=== PATIENT | male | born 1945 | race Caucasian/White ===

== ENCOUNTER → 2017-11-21 | Day surgery (SDC) | payer OTHER, MEDICARE ==
[~2017-11-21] MED LIST: ACETAMINOPHEN 325 MG TAB PO ONE; DEXAMETHASONE 4 MG/ML VIAL IVP ONE; FAMOTIDINE 20 MG TAB PO ONE; LIDOCAINE 1% 2 ML INJ ID PRN; LR 1,000 ML IV ONE; ROPIVACAINE 0.2% 80 MG, EPINEPHrine 0.2 MG, KETOROLAC TROMETHAMINE 30 MG in SYRINGE 0 ML IU ONE; TRANEXAMIC ACID 3,000 MG in NS (SYRINGE) 50 ML IRR ONE; TRANEXAMIC ACID 3,000 MG/50 ML BAG IRR ONE; ceFAZolin 2 GM/DEXTROSE 100 ML IV ONE
[2017-11-21 06:52] VITALS: BP 157/97
--- NOTE | 2017-11-21 07:01 | PDANEPAE ---
ANE History of Present Illness 72 yo male with R hip OA for R AIMEE. ANE Past Medical History - Cardiovascular History Hx Hypertension: Yes Hx Arrhythmias: No Hx Chest Pain: No Hx Coronary Artery / Peripheral Vascular Disease: No Hx CHF / Valvular Disease: No Hx Palpitations: No Cardiovascular History Comment: MONITOR 2 YRS AGO FOR A MILD ARRHYTHMIA - BENIGN - Pulmonary History Hx COPD: No Hx Asthma/Reactive Airway Disease: No Hx Recent Upper Respiratory Infection: No Hx Oxygen in Use at Home: No Hx Sleep Apnea: No Sleep Apnea Screening Result - Last Documented: Negative - Neurologic History Hx Cerebrovascular Accident: No Hx Seizures: No Hx Dementia: No - Endocrine History Hx Diabetes: No Hypothyroid: No Hyperthyroid: No Obesity: no - Renal History Hx Renal Disorders: Yes Renal History Comment: BLADDER CA - Liver History Hx Hepatic Disorders: No - Neurological & Psychiatric Hx Hx Neurological and Psychiatric Disorders: No - Cancer History Hx Cancer: Yes Cancer History Comment: BLADDER CA - Congenital Disorder History Hx Congenital Disorders: No - GI History Hx Gastrointestinal Disorders: No - Other Health History Other Health History: NEG - Chronic Pain History Chronic Pain: Yes (R HIP PAIN) - Surgical History Prior Surgeries: BLADDER CA - TURP - X2. URETER REATTACHED FOLLOWING BLOCKAGE. BLADDER TUMOR REMOVED ANE Review of Systems Review of Systems: - Exercise capacity METS (RN): 4 METS ANE Patient History - Allergies Allergies/Adverse Reactions: No Known Allergies Allergy (Verified 11/03/17 14:29) - Home Medications Home Medications: ALPRAZolam [Xanax 0.25 MG (*)] 0.25 - 0.5 mg PO HS PRN 11/03/17 [Last Taken Unknown] Ascorbic Acid [Vitamin C 500 mg (*)] 500 mg PO DAILY 11/03/17 [Last Taken Unknown] Aspirin [Aspirin 81mg (*)] 81 mg PO DAILY 11/03/17 [Last Taken Unknown] Multivitamins [Multivitamin (*)] 1 each PO DAILY 11/03/17 [Last Taken Unknown] Prilosec 11/05/17 [Last Taken Unknown] - NPO status NPO Since - Liquids (Date): 11/21/17 NPO Since - Liquids (Time): 06:00 NPO Since - Solids (Date): 11/20/17 NPO Since - Solids (Time): 20:00 - Smoking Hx Smoking Status: Former smoker - Family Anes Hx Family Hx Anesthesia Complications: NEG ANE Labs/Vital Signs - Vital Signs Blood Pressure: 157/97 Heart Rate: 74 Respiratory Rate: 16 O2 Sat (%): 97 Height: 182.88 cm Weight: 78.018 kg ANE Physical Exam - ASA Status ASA Status: II
--- NOTE | 2017-11-21 07:13 | PDHPUP ---
History & Physical Update H&P update statement: This history and physical update is based on an assessment of the patient which was completed after admission or registration (within 24 hours), but prior to the surgery/procedure. H&P update: changes noted H&P changes: Pts leg cut by pre-op nurse. Case cancelled
== END | disposition home or self-care (01) ==
LOC: F3N 06:08 → UNDOADMIN 06:08 → FSGY 06:08 → EDSTATUS 08:15
PROVIDERS: ATTEND Orthopaedic Surgery
DX: M16.11 Unilateral primary osteoarthritis, right hip (principal); Z53.09 Procedure and treatment not carried out because of other contraindication
CPT/HCPCS: J0171; J0690; J1100; J1885; J2795

== ENCOUNTER → 2018-02-18 | Outpatient (CLI) | payer OTHER, MEDICARE ==
[~2018-02-18] MED LIST changes: -ACETAMINOPHEN 325 MG TAB PO ONE; -DEXAMETHASONE 4 MG/ML VIAL IVP ONE; -FAMOTIDINE 20 MG TAB PO ONE; +IOPAMIDOL (ISOVUE-300) 100 ML BTL ONE; -LIDOCAINE 1% 2 ML INJ ID PRN; -LR 1,000 ML IV ONE; -ROPIVACAINE 0.2% 80 MG, EPINEPHrine 0.2 MG, KETOROLAC TROMETHAMINE 30 MG in SYRINGE 0 ML IU ONE; -TRANEXAMIC ACID 3,000 MG in NS (SYRINGE) 50 ML IRR ONE; -TRANEXAMIC ACID 3,000 MG/50 ML BAG IRR ONE; -ceFAZolin 2 GM/DEXTROSE 100 ML IV ONE
== END ==
LOC: FIMAGING 08:53
PROVIDERS: ATTEND Internal Medicine
DX: R91.1 Solitary pulmonary nodule (principal); K63.89 Other specified diseases of intestine; K59.00 Constipation, unspecified; M46.96 Unspecified inflammatory spondylopathy, lumbar region; M46.97 Unspecified inflammatory spondylopathy, lumbosacral region
CPT/HCPCS: 74177; Q9967; 82565-PO